=== PATIENT | male | born 1990 | race Two or more races ===

== ENCOUNTER 2024-09-10 12:28 | Emergency (ER) | payer OTHER, SELFPAY ==
[2024-09-10 12:52] VITALS: BP 112/64; PULSE 92; RESP 16; TEMP 36.8; O2SAT 100; BMI 28.4
--- NOTE | 2024-09-10 12:54 | XR_ITS ---
Examination: Hand, right 3 views Technique: Hand AP, oblique, lateral 3 views Date and time of exam: September 10, 2024 1319 hours INDICATIONS: Right hand second digit swelling and pain today, history right second digit surgery FINDINGS: Soft tissue swelling about the second digit especially adjacent to the middle phalanx No fracture No cortical bone destruction No opaque foreign body IMPRESSION: Significant soft tissue swelling about the second digit especially middle phalanx No cortical bone destruction, no fracture, no opaque foreign body
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
[2024-09-10] MEDS: HYDROcodone/APAP 5/325 TABLET 1 TAB PO (14:34)
[2024-09-10] MEDS: LIDOCAINE HCL 1% 20 ML VIAL INFL (14:34)
[2024-09-10] MEDS: CLINDAMYCIN PHOS INJ 150 MG/ML VIAL 6 ML 600 MG IM (14:35)
[2024-09-10] MEDS: DIPHTH,PERTUSS(ACELL),TET VAC 0.5 ML VIAL IMi (14:37)
== END 2024-09-10 15:32 | disposition home or self-care (01) ==
PROVIDERS: Emergency Provider Emergency Medicine
DX: L02.511 Cutaneous abscess of right hand (principal); Z23 Encounter for immunization
CPT/HCPCS: 26010; 73130; 90471; 90715; 96372; 99283; J0736; J3490; A9270